=== PATIENT | female | born 1945 | race Caucasian/White ===

== ENCOUNTER → 2016-08-07 | Day surgery (SDC) | payer MEDICARE ==
[~2016-08-07] MED LIST: BUPIVACAINE HCL PF 0.75% 30 ML VIAL ONE; EPINEPHrine HCL (1:1000) 30 MG/30 ML VIAL ONE; LACTATED RINGER'S 1000 ML INJ 1,000 ML ONE; LIDOCAINE 1.5%/EPINEPHrine 1:200,000 PF SOLN 30 ML AMP ONE; MIDAZOLAM HCL 5 MG/ML VIAL (1 ML) ONE; ONDANSETRON HCL 4 MG/2 ML VIAL IV PUSH ONE; PROPOFOL 200 MG/20 ML AMP IV ONE; ceFAZolin 2 GM PREMIX 50 ML ONE
--- NOTE | 2016-08-09 15:19 | MP ---
cc: LISA JACK DATE OF SURGERY: 08/09/2016. PREOPERATIVE DIAGNOSIS: 1. Left shoulder rotator cuff tendon tear. 2. Left shoulder impingement syndrome. 3. Left shoulder labral tear. 4. Left shoulder biceps tear. POSTOPERATIVE DIAGNOSIS: 1. Left shoulder rotator cuff tendon tear. 2. Left shoulder impingement syndrome. 3. Left shoulder labral tear. 4. Left shoulder biceps tear. OPERATIVE PROCEDURE PERFORMED: 1. Left shoulder arthroscopic rotator cuff repair. 2. Left shoulder arthroscopic subacromial decompression. 3. Left shoulder arthroscopic extensive debridement of labral SLAP tear. 4. Left shoulder open biceps tenodesis. SURGEON: Dr. Lisa Jack. INJECTION MOLDING OPERATOR: Alexander Lindsay. ANESTHESIA: General with an interscalene block. REVIEW OF SYSTEMS: Less than 10 mL COMPLICATIONS: None. IMPLANTS USED: Arthrex. JUSTIFICATION FOR THE PROCEDURE: This patient is a 71-year-old female with a history of increasing pain in regards to her left arm with weakness. She has failed extensive nonoperative conservative treatment. Clinical exam as well as MRI confirmed the above-named findings. The patient was counseled as to the risks, benefits and alternatives of the above-named surgical procedure and she did wish with surgery. DESCRIPTION OF THE PROCEDURE IN DETAIL: Written consent obtained. The patient identified by name and taken to the operating room and placed supine on the operating room table. General anesthesia was administered as well as 2 grams of IV Ancef. She did receive preoperative interscalene block. The patient was carefully turned to the right lateral decubitus position and a lateral arm roll was placed. All bony prominences and pressure points were well padded. An arthroscopic arm soria was gently applied to the left upper extremity with 7 pounds traction placed. The left shoulder was prepped and draped using isopropyl alcohol, Hibiclens solution and DuraPrep solution. After a time-out was performed, standard anterior and posterior glenohumeral arthroscopic portals were established. There was evidence of significant labral tearing along the anterior, superior and posterior portions. An arthroscopic shaver was introduced from the anterior portal and extensive debridement of the labrum was performed to include the three o'clock position up to the twelve o'clock position and all the way back down to the nine o'clock position. There was evidence of a high-grade biceps tendon with fraying of the biceps tendon. Initially a biceps tenotomy was performed and this was tagged with #2 FiberWire suture. There was a small focal area of grade 2 chondromalacia of the midportion of the glenoid and this was also debrided. There was evidence of a full-thickness rotator cuff tear as visualized from the glenohumeral joint to include the supraspinatus tendon; this was debrided. Attention was turned to the subacromial space. There was evidence of impingement bursitis. An arthroscopic shaver was introduced from the lateral portal. A subacromial decompression was performed. The shaver was used to perform an extensive bursectomy. The arthroscopic bur was used to perform an acromioplasty and the cautery device was used to release the coracoacromial ligament. The bur was used to decorticate the greater tuberosity in preparation for a rotator cuff tendon repair. An Arthrex scorpion device was used to shuttle #2 FiberTape suture through the anterior and posterior portions of the torn tendon and #2 FiberLink suture was placed along the posterior portions. The sutures were then placed through the eyelet of an Arthrex 4.75 mm Bio SwiveLock anchor. The anchor was inserted into the greater tuberosity after appropriate tensioning of sutures. There was good purchase and fixation after insertion of the anchor and the rotator cuff tendon repair was probed and noted to have good stability. The arthroscope portals were closed with 3-0 Prolene suture. At this point, the patient was turned to the anterior aspect of the left shoulder. A longitudinal anterior incision was made over the shoulder. The deltopectoral interval was explored and the bicipital groove was identified and the sheath over the bicipital groove was opened to expose the biceps tendon. The tendon was tagged with #2 FiberWire suture in a Krackow whipstitch pattern. At this point, an Arthrex 6.5 mm cannulated drill bit was then drilled to a depth of approximately 20 mm width in the bicipital groove. The sutures from the tendon were then placed through the eyelet of an Arthrex 6.25 mm Biotenodesis screw. The screw and tendon were then inserted into the humerus for a biceps tenodesis repair. There was good stability and fixation after insertion of the Biotenodesis screw. The sutures were cut flush. The wound was thoroughly irrigated with sterile saline solution. The subcutaneous layer was closed with 2-0 Vicryl suture. Skin was closed Dermabond. Sterile dressing was applied. The patient tolerated the procedure well. No intraoperative complications were noted. NOTE Alexander Lindsay was present during the entire procedure to include patient positioning and the procedure itself. The medical necessity of his assistance was indicated in this case due to the complexity of the procedure. He assisted with appropriate manipulation of the arm and also manipulation of the camera. He assisted with shuttling of sutures and also implantation of the suture anchors for purposes of both rotator cuff tenon repair and biceps tenodesis. MD ELLIS Haji/LUIS F /8:44 AM /3:04 PM
== END | disposition home or self-care (01) ==
LOC: ESDC 06:06
PROVIDERS: ATTEND Orthopaedic Surgery Sports Medicine
DX: M75.122 Complete rotator cuff tear or rupture of left shoulder, not specified as traumatic (principal); M75.42 Impingement syndrome of left shoulder; S43.432A Superior glenoid labrum lesion of left shoulder, initial encounter; S46.212A Strain of muscle, fascia and tendon of other parts of biceps, left arm, initial encounter
CPT/HCPCS: 01630; 01716; 01991; 23430; 29823; 29826; 29827; 64417; C1713; J0171; J0690; J2250; J2405; J7120